=== PATIENT | female | born 1970 | race Caucasian/White ===

== ENCOUNTER 2016-09-23 08:36 | Inpatient (IN) | payer SELFPAY ==
[~2016-09-23] VITALS: Ht 157.5 cm; Wt 48.5 kg
--- NOTE | 2016-09-23 09:04 | NUR ---
dr bah at the bedside for eval and exam.
[2016-09-23] MEDS ORDERED: IV NORMAL SALINE 1000 ML BAG IV ONE (09:15)
[2016-09-23] MEDS ORDERED: CLINDAMYCIN PHOSPHATE IV 600 MG in IV DEXTROSE 5% 100 ML IV ONE (09:15)
[2016-09-23] MEDS ORDERED: KETOROLAC TROMETHAMINE 15 MG INJ IVP ONE (09:15)
[2016-09-23] MEDS ORDERED: DEXAMETHASONE SOD PHOSPHATE 4 MG INJ IV ONE (09:15)
--- NOTE | 2016-09-23 09:25 | NUR ---
PT SIGNED CONSENT FOR WAIVER.
[2016-09-23] MEDS ORDERED: DEXAMETHASONE SOD PHOSPHATE 10 MG INJ ONE (09:35)
[2016-09-23] MEDS ORDERED: CLINDAMYCIN PHOSPHATE 600 MG/4 ML VIAL ONE (09:35)
[2016-09-23] MEDS ORDERED: KETOROLAC TROMETHAMINE 15 MG INJ ONE (09:35)
[2016-09-23 09:38] LABS: BASOPHILS # (AUTO) 0.1 K/uL (0.0-8.0); BASOPHILS % (AUTO) 0.3 % (0.0-2.0); EOSINOPHILS % (AUTO) 0.2 % (0.0-7.0); HEMATOCRIT 42.2 % (37-47); HEMOGLOBIN 14.5 G/DL (12.0-16.0); LYMPHOCYTES % (AUTO) 4.2 % (20.5-51.5); MEAN CORPUSCULAR HEMOGLOBIN 32.2 UUG (27.0-31.0); MEAN CORPUSCULAR HGB CONC 34 g/dL (32.0-37.0); MEAN CORPUSCULAR VOLUME 93.5 FL (81.0-99.0); MONOCYTES # (AUTO) 0.5 K/uL (2.0-10.0); MONOCYTES % (AUTO) 2.2 % (0.0-11.0); NEUTROPHILS # (AUTO) 22.4 K/uL (1.8-8.9); NEUTROPHILS % (AUTO) 93.1 % (38.5-71.5); PLATELET COUNT (AUTO) 255 K/UL (150-450); RED BLOOD CELL COUNT(AUTO) 4.52 MIL/UL (4.2-5.4); RED CELL DISTRIBUTION WIDTH 13.7 % (11.5-14.5)
[2016-09-23 09:42] LABS: CALCIUM 9.3 mg/dL (8.5-10.1); CREATININE 0.9 mg/dL (0.6-1.3); POTASSIUM 3.4 mmol/L (3.5-5.1)
[2016-09-23 09:51] LABS: TROPONIN I 0.16 ng/mL (0.00-0.056)
[2016-09-23 09:56] LABS: ALBUMIN 3.5 g/dL (3.4-5.0); BAND % (MANUAL) 5 % (0-10); BILIRUBIN,DIRECT 0.1 mg/dL (0.0-0.2); BILIRUBIN,TOTAL 0.4 mg/dL (0.2-1.0); LYMPHOCYTES % (MANUAL) 5 % (20-40); MONOCYTES % (MANUAL) 3 % (2-10); NEUTROPHILS % (MANUAL) 87 % (42-75); TOTAL PROTEIN, SERUM 8.7 g/dL (6.4-8.2)
[2016-09-23 09:58] LABS: PLATELET ESTIMATE ADEQUATE
[2016-09-23 10:01] LABS: LACTIC ACID 0.5 mmol/L (0.4-2.0)
[2016-09-23] MEDS ORDERED: ONDANSETRON 4 MG/2 ML VIAL IV PRN (11:00)
[2016-09-23] MEDS ORDERED: ACETAMINOPHEN 325 MG TABLET PO PRN (11:00)
[2016-09-23] MEDS ORDERED: MORPHINE SULFATE 2 MG/1 ML DISP.SYRIN IV PRN (11:00)
[2016-09-23] MEDS ORDERED: ASPIRIN EC 81 MG TABLET.DR PO SCH (11:00)
--- NOTE | 2016-09-23 11:36 | NUR ---
U/S TECH AT THE BEDSIDE.
[2016-09-23 12:29] VITALS: BP 90/64
--- NOTE | 2016-09-23 12:38 | NUR ---
500 ML OF IV NS WIDE OPEN PER SULLY MACHUCA
[2016-09-23] MEDS ORDERED: IV NORMAL SALINE 500 ML BAG IV ONE ×2 (12:45→17:15)
[2016-09-23] MEDS ORDERED: IV NORMAL SALINE 500 ML IV ONE (12:45)
[2016-09-23] MEDS: PANTOPRAZOLE SODIUM 40 MG TABLET.DR PO SCH (13:41)
[2016-09-23] MEDS: PIPERACILLIN/TAZOBACTAM/D5W 50 ML IV SCH ×3 (13:42→23:33)
[2016-09-23] MEDS: IV NS 1000 ML 1,000 ML IV PRN (13:43)
[2016-09-23 13:49] LABS: *BLOOD, URINE 2+ (NEGATIVE); *CLARITY,URINE CLOUDY (CLEAR); *COLOR,URINE YELLOW (YELLOW); *KETONES,URINE 4+ (NEGATIVE); *PROTEIN,URINE 2+ (NEGATIVE); *UROBILINOGEN,URINE 0.2 E.U./dl (NORMAL); LEUKOCYTE ESTERASE ,URINE NEGATIVE (NEGATIVE); NITRITE, URINE NEGATIVE (NEGATIVE); UGLUCOSE NEGATIVE (NEGATIVE)
[2016-09-23 14:04] LABS: *URINE HCG, QUAL NEGATIVE (NEGATIVE)
[2016-09-23 14:11] LABS: *BILIRUBIN,URIN 1+ (NEGATIVE)
[2016-09-23 14:12] LABS: ICTOTEST POSITIVE (NEGATIVE)
[2016-09-23 14:13] LABS: BACTERIA,URINE MODERATE /HPF (NONE SEEN); MUCUS,URINE MANY /LPF (0-FEW); RBC,URINE 20-50 /HPF (0-3); SQUAMOUS EPITHELIAL CELL,UR MODERATE /HPF (NONE SEEN)
[2016-09-23] MEDS: POTASSIUM CHLORIDE 50 ML IV SCH (15:39)
[2016-09-23 16:35] VITALS: BP 89/61
[2016-09-23] MEDS ORDERED: POTASSIUM CHLORIDE 10 MEQ CAPSULE.SA PO ONE (17:00)
--- NOTE | 2016-09-23 17:03 | NUR ---
PT STATES "MY IV HURTS" ASSESSED IV, IV HURTS DUE TO POTASSIUM IV. PER SULLY CORDERO "OK TO GIVE KCL 10MEQ PO"
--- NOTE | 2016-09-23 17:10 | NUR ---
PER BAY, HEALTHCARE CONSULTANT 500 ML BOLS WIDE OPEN
[2016-09-23 18:08] VITALS: BP 102/61
--- NOTE | 2016-09-23 19:00 | NUR ---
END OF SHIFT NOTE: NO S/S OF RESPIRATORY DISTRESS NOTED. NO PAIN REPORTED. IV INTACT/PATENT. PT FINISHED BOLUS OF 500 ML. V/S WNL. ALL SAFETY NEEDS ARE MET. PT IS ALERT AND ORIENTEDx3, CALM AND COOPERATIVE.
--- NOTE | 2016-09-23 19:30 | NUR ---
ALERT AND ORIENTED. ABLE TO MAKE NEEDS KNOWN. NO ACUTE DISTRESS NOTED AT THIS TIME. NEEDS ATTENDED. CALL LIGHT WITHIN REACH. WILL MONITOR
[2016-09-23 20:00] VITALS: BP 98/62
[2016-09-24] VITALS: BP 101/60
--- NOTE | 2016-09-24 01:00 | NUR ---
STATED SHES HAVING A HARD TIME SLEEPING, SHE REFUSES TO TAKE ANY STRONG SLEEPING MEDICATIONS. REQUESTED TO DISCONNECT HER WITH IV. WILL MONITOR
[2016-09-24 04:00] VITALS: BP 100/68
[2016-09-24] MEDS: PIPERACILLIN/TAZOBACTAM/D5W 50 ML IV SCH ×2 (06:11→13:58)
[2016-09-24] MEDS: PANTOPRAZOLE SODIUM 40 MG TABLET.DR PO SCH (06:12)
--- NOTE | 2016-09-24 06:24 | NUR ---
STATED STILL SHE WASNT ABLE TO SLEEP, NOT UNTIL AT 0500AM. AFEBRILE. ALL DUE MEDS GIVEN ORDERED. NO ACUTE DISTRESS NOTED. SINUS RHYTHM ON MONITOR. NEEDS ATTENDED. RESUMED WITH IV FLUIDS. CALL LIGHT WITHIN REACH
[2016-09-24 07:24] LABS: ALBUMIN 2.6 g/dL (3.4-5.0); BILIRUBIN,TOTAL 0.4 mg/dL (0.2-1.0); CALCIUM 8.6 mg/dL (8.5-10.1); CREATININE 0.7 mg/dL (0.6-1.3); PHOSPHOROUS 2.1 mg/dL (2.5-4.9); POTASSIUM 3.9 mmol/L (3.5-5.1); TOTAL PROTEIN, SERUM 6.5 g/dL (6.4-8.2)
[2016-09-24 07:25] LABS: BASOPHILS % (AUTO) 0.1 % (0.0-2.0); EOSINOPHILS # (AUTO) 0.1 K/uL (0.0-0.7); EOSINOPHILS % (AUTO) 0.4 % (0.0-7.0); LYMPHOCYTES # (AUTO) 1.4 K/uL (20.0-40.0); LYMPHOCYTES % (AUTO) 9.9 % (20.5-51.5); MEAN CORPUSCULAR HEMOGLOBIN 32.2 UUG (27.0-31.0); MEAN CORPUSCULAR HGB CONC 35 g/dL (32.0-37.0); MEAN CORPUSCULAR VOLUME 93.5 FL (81.0-99.0); MONOCYTES # (AUTO) 0.8 K/uL (2.0-10.0); MONOCYTES % (AUTO) 5.9 % (0.0-11.0); NEUTROPHILS # (AUTO) 11.4 K/uL (1.8-8.9); NEUTROPHILS % (AUTO) 83.7 % (38.5-71.5); PLATELET COUNT (AUTO) 211 K/UL (150-450); RED CELL DISTRIBUTION WIDTH 13.8 % (11.5-14.5)
[2016-09-24 07:27] LABS: HEMOGLOBIN 11.6 G/DL (12.0-16.0); RED BLOOD CELL COUNT(AUTO) 3.61 MIL/UL (4.2-5.4); WHITE BLOOD COUNT (AUTO) 13.7 K/UL (4.0-11.2)
[2016-09-24 07:28] LABS: HEMATOCRIT 33.8 % (37-47)
[2016-09-24 07:40] LABS: BAND % (MANUAL) 6 % (0-10); LYMPHOCYTES % (MANUAL) 8 % (20-40); MONOCYTES % (MANUAL) 3 % (2-10); NEUTROPHILS % (MANUAL) 83 % (42-75)
[2016-09-24 07:42] LABS: PLATELET ESTIMATE ADEQUATE
[2016-09-24 07:50] LABS: THYROID STIMULATING HORMONE 0.738 mIU/mL (0.358-3.740)
--- NOTE | 2016-09-24 09:08 | NUR ---
PT AWAKE IN BED, IN NO ACUTE DISTRESS, STATES TROUBLE SLEEPING BUT NO NEEDS AT THIS TIME. SR ON TELE MONITOR, ALL SAFETY AND COMFORT MEASURES ATTENDED TO, CALL LIGHT IN REACH.
[2016-09-24] MEDS: IV NS 1000 ML 1,000 ML IV PRN (09:51)
[2016-09-24] MEDS ORDERED: POTASSIUM PHOSPHATE MM 7.5 MMOL in IV DEXTROSE 5% 100 ML IV ONE (10:00)
[2016-09-24 10:10] LABS: IRON, SERUM 74 ug/dL (50-175)
[2016-09-24 11:21] VITALS: BP 101/69
[2016-09-24] MEDS ORDERED: SULF1TAB48 PO (12:17)
[2016-09-24] MEDS ORDERED: Acetaminophen PO (12:18)
[2016-09-24 15:14] VITALS: BP 104/70
--- NOTE | 2016-09-24 17:35 | NUR ---
DISCHARGE PROTOCOL FOLLOWED, IV TAKEN OUT WITH NO REDNESS OR IRRITATION NOTED. PRESCRIPTION GIVEN TO PATIENT, EDUCATION PROVIDED, PT VERBALIZED UNDERSTANDING. 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
== END 2016-09-24 17:45 | disposition home or self-care (01) | DRG 871 ==
LOC: ER 08:36 → TELE 11:08
PROVIDERS: ADMIT Internal Medicine; ATTEND Internal Medicine
DX: A41.9 Sepsis, unspecified organism (principal); I21.4 Non-ST elevation (NSTEMI) myocardial infarction; E44.0 Moderate protein-calorie malnutrition; Z68.1 Body mass index [BMI] 19.9 or less, adult; N39.0 Urinary tract infection, site not specified; E87.6 Hypokalemia; F32.9 Major depressive disorder, single episode, unspecified; F41.9 Anxiety disorder, unspecified; G43.909 Migraine, unspecified, not intractable, without status migrainosus; I51.4 Myocarditis, unspecified; B34.9 Viral infection, unspecified; D64.9 Anemia, unspecified; E83.39 Other disorders of phosphorus metabolism; F90.9 Attention-deficit hyperactivity disorder, unspecified type; N92.0 Excessive and frequent menstruation with regular cycle; I95.9 Hypotension, unspecified; R73.9 Hyperglycemia, unspecified; M79.1 Myalgia
CPT/HCPCS: 36415; 70030-TC; 71010; 83550; 83605; 83735; 84100; 84443; 84703; 85025; 85730; 87040; 87086; 87400; 93005; 93307; 97001; A4663; J1100; J1885; J2543; J3480; J3490; J7030; J7040; J7060